=== PATIENT | female | born 1950 | race Two or more races ===

== ENCOUNTER 2021-06-13 07:26 | Outpatient (CLI) | payer OTHER | END 2021-06-13 07:31 | disposition home or self-care (01) | LOC: NUCLEAR 07:26 | PROVIDERS: ATTEND Internal Medicine Cardiovascular Disease | DX: E20.9 Hypoparathyroidism, unspecified (principal); D35.1 Benign neoplasm of parathyroid gland | CPT/HCPCS: 78070; A9500 ==

== ENCOUNTER 2021-06-26 11:21 | Outpatient (CLI) | payer OTHER | END 2021-06-26 11:25 | disposition home or self-care (01) | LOC: SONOGRAMA 11:21 | PROVIDERS: ATTEND Pathology Anatomic Pathology & Clinical Pathology | DX: E04.1 Nontoxic single thyroid nodule (principal); E21.3 Hyperparathyroidism, unspecified ==